=== PATIENT | male | born 1985 | race Caucasian/White ===

== ENCOUNTER → 2023-07-30 | Outpatient (CLI) | payer MEDICAID ==
[2023-07-30 21:48] LABS: Basophils # (A) 0.04 X 10*3/uL (0.00-0.10); Basophils % (A) 0.4 %; Eosinophils # (A) 0.07 X 10*3/uL (0.04-0.35); Eosinophils % (A) 0.8 %; HGB 15.7 g/dL (13.0-17.0); Lymphocytes # (A) 1.56 X 10*3/uL (0.90-5.00); Lymphocytes % (A) 16.8 %; MCH 29.4 pg (27.0-32.0); MCHC 32.7 g/dL (32.0-37.0); MCV 89.9 FL (80.0-97.0); Mean Platelet Volume 10.7 FL (9.5-12.2); Monocytes # (A) 0.79 X 10*3/uL (0.20-1.00); Monocytes % (A) 8.5 %; NRBC Per 100 WBC 0 X 10*3/uL (0.00-0.01); Neutrophils # (A) 6.78 X 10*3/uL (1.80-7.70); Neutrophils % (A) 73.1 %; Platelet Count 273 X 10*3/uL (140-440); RBC 5.34 X 10*6/uL (4.40-5.60); RDW 13.2 % (11.5-14.5); WBC 9.28 X 10*3/uL (4.50-10.00)
[2023-07-30 21:53] LABS: ALT 26 U/L (10-49); AST 22 U/L (14-35); Blood Urea Nitrogen 11.5 mg/dL (9.0-27.0); Calcium 9.8 mg/dL (8.7-10.3); Carbon Dioxide 24.4 mmol/L (21.6-31.8); Chloride 104 mmol/L (96-109); Creatine Kinase 75 U/L (35-257); Glucose 87 mg/dL (70-110); Potassium 4.3 mmol/L (3.5-5.5); Rheumatoid Factor, Qnt <15 IU/mL (0-15); Sodium 142 mmol/L (135-145); T4, Free (Free Thyroxine) 1.18 ng/dL (0.80-1.80); Uric Acid 6.4 mg/dL (3.7-8.7)
[2023-07-30 22:13] LABS: Erythrocyte Sedimentation Rate 6 mm/Hr (0-15)
[2023-07-30 22:28] LABS: Appearance,BF Cloudy; Color,BF Red; Nucleated Cells, Body Fluid 1611 /uL; RBC, Body Fluid 172500 /uL
[2023-07-30 22:44] LABS: Mononuclear WBC,Body Fluid 45 %; Polynuclear WBC,Body Fluid 55 %; Total Cells Counted,Body Fluid 100
[2023-07-31 04:24] LABS: Synovial Fld Crystals None Seen (None Seen)
[2023-07-31 09:50] LABS: HLA B27 NEGATIVE
[2023-07-31 10:44] LABS: Cyclic Citrull Pep IgG Unit <1.5 U/mL (<=3.9); Cyclic Citrullinated Pep IgG Negative
[2023-07-31 12:41] LABS: Angiotensin-1 Converting Enz. 31 U/L (8-52)
== END | disposition home or self-care (01) ==
LOC: LABWHC1 11:38
PROVIDERS: ATTEND Orthopaedic Surgery
DX: M25.461 Effusion, right knee (principal); M23.8X1 Other internal derangements of right knee; M10.061 Idiopathic gout, right knee
CPT/HCPCS: 36415; 80048; 82164; 82306; 82550; 83520; 84439; 84443; 84450; 84460; 84550; 85025; 85652; 86038; 86140; 86200; 86431; 86812; 87070; 87075; 87205; 89050; 89060